=== PATIENT | male | born 1980 | race Caucasian/White ===

== ENCOUNTER 2017-06-16 07:21 | Emergency (ER) | payer SELFPAY ==
[~2017-06-16] VITALS: Ht 175.3 cm; Wt 99.8 kg
--- OUTSIDE RECORDS SUMMARY | 2017-06-16 07:40 | External Medical Summary Rpt | CCD ---
Demographics Preferred Language Nepali Marital Status Unknown Hoahaoism Affiliation Unknown Race Unknown Ethnic Group Unknown Author Author , SIRIA BEVERLY Address Unknown Phone [email or web address] Purpose Continuity of Care Document - 12-21-2016 through 2016 Problems Code Diagnosis DOS Provider Status Z02.83 ENCOUNTER 12-21-2016 FOR BLOOD-ALCOH OL AND BLOOD-DRUG TEST
--- OUTSIDE RECORDS SUMMARY | 2017-06-16 07:40 | External Medical Summary Rpt | CCD ---
Demographics Preferred Language Turkmen Marital Status Unknown Baptist Affiliation Unknown Race Unknown Ethnic Group Unknown Author Author , SIRIA BEVERLY Address Unknown Phone [email or web address] Purpose Continuity of Care Document - 12-21-2016 through 2016 Problems Code Diagnosis DOS Provider Status Z02.83 ENCOUNTER 12-21-2016 FOR BLOOD-ALCOH OL AND BLOOD-DRUG TEST
[2017-06-16] MEDS ORDERED: PHILLIPS' COLO1 EACH PO (07:41)
--- OUTSIDE RECORDS SUMMARY | 2017-06-16 07:41 | External Medical Summary Rpt | CCD ---
Author Author [employer] Organization [employer] Address Unknown Phone Unavailable Purpose Continuity of Care Document - through 2016
--- OUTSIDE RECORDS SUMMARY | 2017-06-16 07:42 | External Medical Summary Rpt ---
Author Author SIRIA Joel, [employer] Organization [employer] Address Unknown Phone Unavailable
--- OUTSIDE RECORDS SUMMARY | 2017-06-16 07:42 | External Medical Summary Rpt | CCD ---
Demographics Preferred Language Telugu Marital Status Unknown Presybeterian Affiliation Unknown Race Unknown Ethnic Group Unknown Author Author , SIRIA BEVERLY Address Unknown Phone Immunization Unable to retrieve immunization data due to connection failure with Immunization Registry. Please try again later.
--- OUTSIDE RECORDS SUMMARY | 2017-06-16 07:42 | External Medical Summary Rpt | CCD ---
Demographics Preferred Language Italian Marital Status Unknown Oriental Orthodox Affiliation Unknown Race Unknown Ethnic Group Unknown Author Author , SIRIA BEVERLY Address Unknown Phone Immunization Unable to retrieve immunization data due to connection failure with Immunization Registry. Please try again later.
--- NOTE | 2017-06-16 09:14 | Emergency Room Report ---
History of Present Illness Time Seen by MD Perry Presenting Problem in Triage Pt arrived:Walked Presenting Problem:ABDOMINAL PAIN; NO BOWEL MOVEMENT X 1 WEEK Onset of symptoms date/time:06/09/17 or onset unknown for: Treatment Prior to Arrival: METAMUCIL, MIRALAX, [email or web address] EMPLOYMENT COACH Provided by:SELF Sepsis Risk Assessment: Temp: 98.5 B/P: 148/85 MAP: 106 Pulse: 86 Resp: 18 Recent fever? N Clinical Suspician of Infection? N Mental Status: 1 - Regular (Normal Baseline) Sepsis Risk:Low Sepsis Risk Have you (or family members/close friends) recently traveled outside the [place]? N If Yes, where/when: Have you had exposure to infectious disease within the past month? N TB? Other? Specify: Source patient, RN notes reviewed, family, old records Exam Limitations no limitations Comment pt with crampy abd pain with no fever or vomiting - no bm x 1 week - Cardiac Chest Pain Chest pain indicative of cardiac No Timing/Duration this evening Severity moderate ALLERGIES Coded Allergies: No Known Allergies (06/16/17) Home Medications Reported Medications L Gasseri/B Bifidum/B Longum (EcoSwarm Capsule) 1 EACH PO DAILY History Medical History General CAD? No Angina: No IN: No Hypertension? No Hyperlipidemia? No CHF? No DVT? No PE? No COPD? No Asthma? No Anemia? No GERD? Yes Gastric ulcers? Yes GI Bleed? No Hernia? No Thyroid Problems? No Hypothyroidism? No CVA? No Seizures? No Diabetes? No Renal Insuffiency? No End Stage Renal Disease? No UTI? No Stones? No BPH? No GB Disease: No Nephritic Syndrome? No Asplenia? No Hepatitis? No Sickle Cell Disease? No Arthritis? No Migraines? No Cataracts? No Glaucoma? No MRSA? No HIV? No TB? No Anxiety? No Depression? No Cancer? No More? Yes Additional hx: DIVERTICULITIS Immunization Hx DT/Tetanus Has Never Had Surgical Hx Previous Surgery?Y HERNIA REPAIR Social History Smoking Hx Smoker: Current Every Day Smoker Tobacco: Yes Type Cigarettes Packs/day < 1 Pack Alcohol Alcohol: No Drugs none Review of Systems All Other Systems Reviewed and Negative Constitutional denies fever Eyes denies drainage ENT denies: ear discharge, epistaxis, throat pain. Respiratory denies cough, denies shortness of breath, denies wheezing Cardiovascular denies chest pain, denies palpitations, denies syncope Gastrointestinal see HPI, abdominal pain, constipation, denies nausea, denies vomiting Genitourinary denies: dysuria, frequency, hesitancy. Musculoskeletal denies back pain, denies joint pain, denies joint swelling, denies neck pain Skin denies rash Psychiatric/Neurological denies headache, denies seizure Physical Exam Vital Signs Vital Signs Date Time Temp Pulse Resp B/P Pulse O2 O2 Flow FiO2 Ox Delivery Rate 06/16 0733 98.5 86 18 148/85 97 - WBC >12,000 or <4,000 or 10% bands? 2 or more SIRS Criteria Met? B/P:148/85 MAP:106 Creatinine >2.0? UA output<0.5ml/kg/hr for 2 hrs? Platelet count >100,000? Lactate >2.0mmol/1? INR >1.2 or PTT > than 60 sec? Evidence of Organ Dysfunction? Provider documented clinical suspician of infection? N Sepsis Criteria Count: 0 Sepsis Risk: Low Sepsis Risk General Appearance no apparent distress Eye Exam - bilateral eye PERRL, bilateral eye EOMI Ear, Nose, Throat normal ENT inspection Neck supple Respiratory Status No: respiratory distress. Lung Sounds bilateral: lungs clear. Cardiovascular regular rate/rhythm, no murmur Peripheral Pulses Pulses normal Yes Gastrointestinal soft, no organomegaly, no pulsatile mass, no guarding, no rebound Extremities normal inspection Strength 4 Upper Ext (L), 4 Upper Ext (R), 4 Lower Ext (L), 4 Lower Ext (R) Rectal deferred Neurologic alert, staff midwife/apprenticeship director II-XII nml as tested, no motor/sensory deficits Reflexes Reflexes normal Yes Mental status normal mood/affect Skin intact Medical Decision Making LABS/Meds/Orders Pt receiving controlled substance in ED? No Results/Orders Laboratory Tests 06/16/17922: Amylase Pending, Lipase Pending 06/16/17922: Sodium 140, Potassium 4.6, Chloride 105, Carbon Dioxide 27, BUN 11, Creatinine 0.9, Estimated Creat Clear 160, Estimated GFR (MDRD) 95, Glucose 97, Calcium 9.0 , Total Bilirubin 1.2 H, AST 34, ALT 74, Alkaline Phosphatase 51, Total Protein 7.3, Albumin 3.9, Globulin 3.4 H, Albumin/Globulin Ratio 1.1, TSH 2.14, Thyroxine (T4) 10.0, WBC 8.3, RBC 4.69, Hgb 14.8, Hct 42.2, MCV 90.1, RDW 13.2, Plt Count 249, MPV 7.7, Gran % 71.3, Gran # 5.9, Lymphocytes % 19.9, Monocytes % 5.8, Eosinophils % 2.8, Basophils % 0.2, Lymphocytes # 1.7, Monocytes # 0.5, Eosinophils # 0.2, Basophils # 0.0, PUBS MCHC 35.0, MCH 31.6 H Orders Procedure Date/time Status LIPASE 06/16 1045 Active AMYLASE 06/16 1045 Active ABD ACUTE(MUL VIEWS) 06/16 09 Active THYROID STIMULATING HORMONE 06/16 914 Complete THYROXINE (T4) 06/16 914 Complete COMPLETE METABOLIC PANEL 06/16 914 Complete CBC WITH AUTO DIFF 06/16 914 Complete XRAY/CT/US XRAY/CT/US XRAY abdomen XR interpretation by reviewed by me Xray Results normal/NAD Departure Departure Time of Disposition 1041 Disposition DC Home or Self Care(routine) Clinical Impression Primary Impression: Constipation Qualifiers: Constipation type: unspecified constipation type Qualified Code: K59.00 - Constipation, unspecified Condition STABLE Patient Instructions DI for Constipation Additional Instructions use meds and see pcp for follow up Discharge Counseling Counseled pt/family regarding diagnosis, test results, medications/RX, follow up needs Prescriptions Current Visit Scripts POLYETHYLENE GLYCOL (Miralax) 17 GM PO DAILY #30 [facility] Critical Care Critical Care No at 1056
[2017-06-16 09:38] LABS: HEMOGLOBIN 14.8 g/dL (14.1-18.0); LYMPH # 1.7 K/mm3 (0.7-4.5); LYMPH % 19.9 % (10-50)
[2017-06-16] MEDS ORDERED: MIRALAX(PO17 GM/1 PA PO (10:59)
[2017-06-16 11:08] VITALS: BP 124/85
--- NOTE | 2017-06-16 12:06 | RADIOLOGY REPORT PS360 ---
ABD ACUTE(MUL VIEWS) Ordering Physician: Mark Whitt MD Patient Age: 37 years: Male HISTORY: constipation TECHNIQUE: Upright chest with flat and upright views of abdomen COMPARISON :No previous FINDINGS Upright chest: Lungs are clear with no active disease. Heart upper normal in size desi and mediastinal structures satisfactory and could be some mild peribronchial cuffing but this is equivocal. No focal pneumonia evident. No pleural effusion. No free air beneath the diaphragm Abdomen. Flat and upright views of abdomen show generous stool throughout the right colon on moderate to generous stool at the transverse colon. Minimal stool and gas at the left colon rectosigmoid. . No significant bowel dilatation or obstruction. There is a isolated loop of gas-filled small bowel the left upper abdomen. Nondilated, Upper normal caliber. Likely normal but could reflect a localized ileus. May be worth excluding pancreatitis with such. The significant no air-fluid levels are seen within the small bowel nor large bowel. No significant calcifications. No organomegaly. IMPRESSION: --------- 1. Nonspecific bowel gas pattern.: ... Moderate degenerative stool at the right and transverse colon with minimal stool and gas at the left colon Isolated Loop of nondilated small bowel gas at the left upper abdomen. Unlikely of significance a doubt localized ileus but it may be worth checking amylase lipase to exclude pancreatitis . 2. Lungs clear. Nothing definitely acute
== END 2017-06-16 11:09 | disposition home or self-care (01) ==
LOC: ER 07:21
PROVIDERS: Emergency Medicine
DX: K59.00 Constipation, unspecified (principal); K21.9 Gastro-esophageal reflux disease without esophagitis; F17.210 Nicotine dependence, cigarettes, uncomplicated